=== PATIENT | female | born 1950 | race Caucasian/White ===

== ENCOUNTER 2022-03-30 11:18 | Emergency (ER) | payer BC ==
[~2022-03-30] VITALS: Ht 175.3 cm; Wt 66.8 kg
[~2022-03-30 11:18] MED LIST: EST1T PO; PRO2.5T PO; SIMV-42 PO
[2022-03-30] MEDS ORDERED: NAPR-56 PO (13:34)
[2022-03-30] MEDS ORDERED: TRAM50TA2 PO (13:34)
[2022-03-30 13:45] VITALS: BP 159/84
== END 2022-03-30 13:47 | disposition home or self-care (01) ==
LOC: ER 11:18
DX: S56.912A Strain of unspecified muscles, fascia and tendons at forearm level, left arm, initial encounter (principal); M79.632 Pain in left forearm; Z88.2 Allergy status to sulfonamides; Z88.5 Allergy status to narcotic agent; Z79.899 Other long term (current) drug therapy; W01.0XXA Fall on same level from slipping, tripping and stumbling without subsequent striking against object, initial encounter; Y93.89 Activity, other specified; Y92.89 Other specified places as the place of occurrence of the external cause; Y99.8 Other external cause status
CPT/HCPCS: 73090; 99284